=== PATIENT | female | born 2000 | race Caucasian/White ===

== ENCOUNTER 2024-01-29 19:25 | Emergency (ER) | payer MEDICAID ==
[~2024-01-29] VITALS: Ht 162.6 cm; Wt 61.2 kg
[2024-01-29 20:18] VITALS: BP 127/81; TEMP 98.2; O2SAT 99
== END 2024-01-29 21:25 | disposition home or self-care (01) ==
LOC: ER 19:28
DX: J30.9 Allergic rhinitis, unspecified (principal); R05.9 Cough, unspecified; R06.7 Sneezing